=== PATIENT | female | born 1950 | race American Indian/Alaskan Native ===

== ENCOUNTER 2017-11-17 08:52 | Outpatient (CLI) | payer OTHER, MEDICARE ==
--- NOTE | 2017-11-17 09:40 | Mammography Report ---
Screening mammogram: Routine views compared to prior exams dating back to February 2014. There is a generally fatty replaced pattern throughout both breasts. Some scattered benign-appearing calcifications are noted. These findings appear unchanged. There is a 5 mm circumscribed nodule identified in the central left breast in CC projection which may be identified in the lateral projection. This is not apparent on prior exams. CAD used. Impression: Left asymmetry. Recommendation: Spot compression magnification view of the left breast. Ultrasound, if needed. BI-RADS CATEGORY: 0 = Needs additional imaging evaluation ACR BI-RADS MAMMOGRAPHIC CODES: 0 = Needs additional imaging evaluation; 1 = Negative; 2 = Benign; 3 = Probably benign; 4 = Suspicious; 5 = Malignant; 6 = Known biopsy-proven malignancy COMMENT: 1. Dense breast tissue, i.e., adenosis, fibrocystic changes, etc., may obscure an underlying neoplasm. 2. Approximately 10% of cancers are not detected with mammography. 3. A negative mammography report should not delay biopsy if a clinically suspicious mass is present.
== END 2017-11-17 08:53 | disposition home or self-care (01) ==
LOC: MAMMO 08:52
PROVIDERS: ATTEND Internal Medicine
DX: Z12.31 Encounter for screening mammogram for malignant neoplasm of breast (principal); E11.9 Type 2 diabetes mellitus without complications; I10 Essential (primary) hypertension; J45.909 Unspecified asthma, uncomplicated; I25.10 Atherosclerotic heart disease of native coronary artery without angina pectoris
CPT/HCPCS: 77067